=== PATIENT | female | born 1955 | race Two or more races ===

== ENCOUNTER → 2025-02-21 | Outpatient (CLI) | payer SELFPAY ==
--- NOTE | 2025-02-20 | SUBM_PTH ---
PATIENT: PAGE GONG LOC: [facility] U#:[id number] AGE/SX: 69/F ROOM: RE02/21/[address]: Dr. Aroldo Metz MD : [id number] BED: DIS: 02/21/2025 SPEC #: [id number] RECD: 02/21/25 07:30 STATUS: CARLOS MAGGIE #: [id number] BRADY: 02/20/25 00:[address]: Aroldo Metz DEPT: SURGICAL PATHOLOGY RECD BY: Nicholas Haley Tissues: A - Salivary gland, NOS Procedures: Surgery Specimen Level V HEADER OPERATION: Excision right submandibular gland PRE-OP DIAGNOSIS: Sialolithiasis TISSUE SUBMITTED: A- Right submandibular gland MICROSCOPIC DIAGNOSIS A. Right submandibular gland, excision: - Dilated interlobular ducts with periductal and lobular active chronic inflammation. - No calculi observed. MICROSCOPIC DESCRIPTION Slides are reviewed. GROSS DESCRIPTION A. Received in formalin labeled with the patient's name and date of . Designated as right submandibular gland is a 9.6 g, previously incised and nearly bisected, bell to light brown, lobulated salivary gland, 4.0 x 2.9 x 1.8 cm. The intact external surfaces are inked black. Sectioning reveals bell to light brown, lobulated cut surfaces. Definitive mass lesions or calculi are not identified. Lymph nodes are not identified. Hydrostatic Tubing Tester sections are submitted in 3 cassettes. [place] 02/22/2025 CPT:00194
== END | disposition home or self-care (01) ==
LOC: LABSPEC 15:33
PROVIDERS: Referring Provider Otolaryngology; Visit Provider Otolaryngology
DX: K11.5 Sialolithiasis (principal)
CPT/HCPCS: 88307